=== PATIENT | female | born 1930 | race African-American/Black ===

== ENCOUNTER 2016-06-17 15:17 | Inpatient (IN) | payer OTHER ==
[2016-06-17 16:11] LABS: URINE SOURCE CLEAN CATCH
[2016-06-17] MEDS ORDERED: HYDROXYZINE PO ONE (16:12)
[2016-06-17 16:15] LABS: BILIRUBIN URINE NEGATIVE (NEGATIVE); BLOOD URINE NEGATIVE (NEGATIVE); CLARITY CLEAR (CLEAR); COLOR YELLOW; GLUCOSE URINE NEGATIVE (NEGATIVE); LEUKOCYTES URINE 2+ (NEGATIVE); NITRITE URINE NEGATIVE (NEGATIVE); PH URINE 6.5; PROTEIN URINE 2+(100 mg/dL) mg/dL (NEGATIVE); SP GRAVITY URINE 1.005; UROBILINOGEN URINE NORMAL
--- NOTE | 2016-06-17 16:21 | PROVIDER DOCUMENTATION ---
HPI-Respiratory General - General Chief Complaint: Shortness of Breath Stated Complaint: B/P PROB Time Seen by Provider: 06/17/16 16:03 Source: patient Allergies/Adverse Reactions: Patient Allergies Allergy/AdvReac Type Severity Reaction Status Date / Time Beta-Blockers Allergy SHORTNESS Verified 04/13/16 12:43 (Beta-Adrenergic Bloc OF BREATH Home Medications: Dicyclomine [Bentyl] 20 mg PO 4XDAY PRN PRN 09/03/15 Isosorbide Mononitrate [Isosorbide Mononitrate ER] 30 mg PO DAILY 09/03/15 Losartan Potassium 100 mg PO DAILY 09/03/15 Calcitriol 0.25 mcg PO DAILY 01/11/16 Iron Fum,Ps/FA/Vit B with C #9 [Integra Plus Capsule] 1 each PO DAILY 01/11/16 Furosemide [Lasix] 40 mg PO TID 01/12/16 Polyethylene Glycol 3350 [Miralax] 17 gm PO DAILY 01/12/16 Cholecalciferol (Vitamin D3) [Vitamin D3] 1,000 unit PO DAILY 04/11/16 Lactobacillus Acidophilus [Florajen] 460 mg PO DAILY 04/11/16 Omeprazole 40 mg PO DAILY@0700 04/11/16 - History of Present Illness-Resp Nature of Presenting Problem: Reports to er with cc of sob since last night reports orthopnea states is on home oxygen at night. Reports significant itchying all over body reports possible rash. Hx of CHF. Quality of Pain: reports: none Severity in ED: reports: moderate Onset/Duration: reports: last night Cough Quality/Degree: reports: no cough Episode Frequency: occasional episodes Current Respiratory Medication Therapy: Initiated see nurses note Similar Symptoms Previously?: Yes Recently seen or treated by another doctor?: No Review of Systems - Adult - REVIEW OF SYSTEMS - ADULT Constitutional: denies: chills, fever, fatique Eyes: reports: no symptoms reported Ears, Nose, Mouth & Throat: denies: ear pain, sinus problem, throat pain Cardiovascular: reports: orthopnea. denies: chest pain, irregular heart rate, syncope Respiratory: reports: shortness of breath. denies: cough, pleurisy, wheezing Gastrointestinal: reports: no symptoms reported Genitourinary: reports: no symptoms reported Musculoskeletal: reports: no symptoms reported Integumentary: reports: no symptoms reported Neurological: reports: no symptoms reported Psychiatric: reports: no symptoms reported Endocrine: reports: no symptoms reported Hematologic/Lymphatic: reports: no symptoms reported Allergic/Immunologic: reports: no symptoms reported All Other Systems: Reviewed and Negative Past History - Adult - PAST MEDICAL HISTORY-ADULT Review of Records: reports: Nursing Assessment Review Major Childhood Illnesses: reports: denies history Cardiovascular: reports: HTN Respiratory: reports: asthma, COPD Gastrointestinal: reports: denies history Obstetrical/Gynecological: reports: denies history Genitourinary: reports: cancer (right kidney ), ESRD Musculoskeletal: reports: denies history Neurological: reports: denies history Endocrine/Immune: reports: Diabetes Other Conditions: reports: denies history - PRIOR SURGERIES/PROCEDURES Surgical/Procedure History: reports: other (right nephrectomy) - IMMUNIZATION STATUS Childhood Immunizations: See Nurse Assessment Flu Vaccine: See Nurse Assessment - FAMILY HISTORY Family History: reviewed, not pertinent - SOCIAL HISTORY Smoking: denies Substance Use: none/never Physical Exam-General - PHYSICAL EXAM-ADULT Initial Vital Signs Reviewed: Yes - CONSTITUTIONAL General Appearance: appears well, alert, no apparent distress, other (95% room air sat) - EYES Eyes: PERRL/EOMI, pink conjunctivae - HEAD, EARS, NOSE, MOUTH & THROAT HENMT: normocephalic/atraumatic, moist mucous membranes, normal ENT inspection - NECK Neck: non-tender, full range of motion, supple, normal inspection - RESPIRATORY Respiratory: chest non-tender, wheezing (bilaterally) - CARDIOVASCULAR Cardiovascular: normal peripheral pulses, regular rate, rhythm, no edema, no gallop, no JVD, no murmur - GASTROINTESTINAL (ABDOMEN) Abdominal Exam: normal bowel sounds, non tender, soft, no organomegaly, no pulsatile mass - MUSCULOSKELETAL Extremity: normal range of motion, non-tender, pedal edema (1+ pitting edema) Peripheral Pulses: dorsalis-pedis (R): 2+, dorsalis-pedis (L): 2+ - SKIN Integumentary: normal color, normal turgor, warm/dry, other (dry flaky skin) - PSYCHIATRIC Psych/Mental Status: normal mood/affect, normal thought content, normal thought process, oriented x 3 Progress - PLAN OF CARE/RESULTS Progress/Plan/Lab Results: Orders Category Date Time Status cxr [CHEST-2 VIEWS] [RAD] Stat Exams 12/27/16 16:12 Ordered BNP [PRO B-NATRIURETIC PEPTIDE] Stat Lab 06/17/16 16:12 Ordered CBC WITH ELECTRONIC DIFF [HEME] Stat Lab 06/17/16 16:11 Ordered CMP [COMPREHENSIVE METABOLIC PANEL] [CHEM] Stat Lab 06/17/16 16:11 Ordered UA [URINALYSIS PL W/POSS RFLX CULT] [URINALYSIS] Stat Lab 06/17/16 15:55 Results Hydroxyzine Med 06/17/16 16:12 Discontinued 50 mg PO NOW ONE Vital Signs - 24 hr 06/17/16 15:27 Temperature 98.1 F Pulse Rate 70 Respiratory 18 Rate Blood Pressure 202/78 O2 Sat by Pulse 97 Oximetry Laboratory Tests 06/17/16 06/17/16 06/17/16 15:55 17:00 17:00 WBC 8.78 RBC 3.12 L Hgb 9.4 L Hct 30.3 L MCV 97.1 MCH 30.1 MCHC 31.0 L RDW Std Deviation 16.4 H Plt Count 271 MPV 10.4 Immature Gran % (Auto) 0.7 H Neut % (Auto) 69.0 Lymph % (Auto) 13.7 L Lewis % (Auto) 13.1 H Eos % (Auto) 3.0 Baso % (Auto) 0.5 Immature Gran # (Auto) 0.06 H Neut # 6.07 Lymph # 1.20 Lewis # 1.15 H Eos # 0.26 Baso # 0.04 Sodium 133 L Potassium 4.8 Chloride 101 Carbon Dioxide 17 L Anion Gap 15 BUN 58 H Creatinine 4.5 H Estimated GFR/1.73 m2 9 BUN/Creatinine Ratio 13 Glucose 107 H Calculated Osmolality 283 Calcium 9.6 Total Bilirubin < 0.15 L AST 24 ALT 16 Alkaline Phosphatase 83 Pxs-[id number] Pept Total Protein 6.4 Albumin 3.7 Globulin 3.0 Albumin/Globulin Ratio 1.0 Urine Source CLEAN CATCH Urine Color YELLOW Urine Clarity CLEAR Urine pH 6.5 Ur Specific Sula 1.005 Urine Protein 2+(100 mg/dL) A Urine Ketones NEGATIVE Urine Blood NEGATIVE Urine Nitrite NEGATIVE Urine Bilirubin NEGATIVE Urine Urobilinogen NORMAL Urine Microscopic RBC Not Reportable Urine WBC 2+ A Urine Microscopic WBC 10-20 A Ur Epithelial Cells <10 Urine Crystals NONE SEEN Urine Bacteria 1+ Urine Casts NONE SEEN Urine Yeast NONE SEEN Urine Glucose NEGATIVE 06/17/16 17:00 WBC RBC Hgb Hct MCV MCH MCHC RDW Std Deviation Plt Count MPV Immature Gran % (Auto) Neut % (Auto) Lymph % (Auto) Lewis % (Auto) Eos % (Auto) Baso % (Auto) Immature Gran # (Auto) Neut # Lymph # Lewis # Eos # Baso # Sodium Potassium Chloride Carbon Dioxide Anion Gap BUN Creatinine Estimated GFR/1.73 m2 BUN/Creatinine Ratio Glucose Calculated Osmolality Calcium Total Bilirubin AST ALT Alkaline Phosphatase Adj-P-[id number] Pept 12780 H Total Protein Albumin Globulin Albumin/Globulin Ratio Urine Source Urine Color Urine Clarity Urine pH Ur Specific Sula Urine Protein Urine Ketones Urine Blood Urine Nitrite Urine Bilirubin Urine Urobilinogen Urine Microscopic RBC Urine WBC Urine Microscopic WBC Ur Epithelial Cells Urine Crystals Urine Bacteria Urine Casts Urine Yeast Urine Glucose - XRAY 1 XRAY: Bilateral XRAY Study: Chest Impression: Abnormal (CM with IS edema and more focal edema or pna right lung base' ) - CONSULTS/PCP/HOSPITALIST Notification #1 *Consult/PCP/Hospitalist*: Time Discussed: 17:53 Consult Disposition: Admit Departure - Departure Time of Disposition Order: 17:50 DIAGNOSIS: CHF (congestive heart failure) Disposition: ADMITTED INPATIENT 09 Certified Medical Emergency: Emergent Condition: Stable Attestation - Scribe Verification/Attestation Scribe:: Nona Pena Acting as Scribe for:: Matt Menezes Scribe documention review:: This chart was documented by a scribe and accurately reflects the service the provider performed and the decisions made by the provider.
[2016-06-17] MEDS ORDERED: HYDROXYZINE ONE (16:35)
[2016-06-17 16:37] LABS: URINE CAST NONE SEEN /LPF; URINE CRYSTAL NONE SEEN /HPF; URINE CULTURE PL NEEDED? YES; URINE EPITHELIAL CELLS <10 /HPF (<10)
[2016-06-17 17:11] LABS: BASO% 0.5 % (0.0-0.8); EOS# 0.26 X1000 (0.0-0.7); HEMATOCRIT 30.3 % (37.0-47.0); HEMOGLOBIN 9.4 g/dL (12.0-16.0); IMM GRAN# 0.06 X1000 (0.0-0.04); IMM GRAN% 0.7 % (0.0-0.5); LYMPH% 13.7 % (20.5-51.1); MANUAL DIFF NEEDED? NO; MCH 30.1 PG (27-31); MCV 97.1 FL (81-99); MONO# 1.15 X1000 (0.11-0.59); MONO% 13.1 % (1.7-9.3); MPV 10.4 FL (7.4-10.4); PLT 271 X1000 (130-400); RBC 3.12 XMIL (4.2-5.4)
[2016-06-17 17:36] LABS: AGAP 15; ALBUMIN 3.7 g/dL (3.5-5.0); ALKALINE PHOSPHATASE 83 U/L (32-104); BUN 58 mg/dL (8-22); CALCIUM 9.6 mg/dL (8.8-10.2); CHLORIDE 101 mmol/L (98-107); COSMO 283; GOT 24 U/L (10-30); GPT 16 U/L (10-36); POTASSIUM 4.8 mmol/L (3.5-5.1); SODIUM 133 mmol/L (136-145); TCO2 17 mmol/L (25-35); TOTAL BILIRUBIN < 0.15 mg/dL (0.20-1.00); TOTAL PROTEIN 6.4 g/dL (6.3-8.3)
--- NOTE | 2016-06-17 18:01 | Diag Imaging Result Document ---
PROCEDURE NAME: CHEST-2 VIEWS - 06/17/2016 CHEST, 2 VIEWS: COMPARISON: 04/29/2016. FINDINGS: There is cardiomegaly. There are prominent interstitial markings throughout both lungs. There is increased opacity within the right lower lobe consistent with pneumonia or edema. No pleural effusions. There is very mild subpleural edema on the lateral view. IMPRESSION: Cardiomegaly with interstitial edema and more focal edema or pneumonia right lung base.
[2016-06-17] MEDS ORDERED: CATAPRES PO ONE (18:07)
[2016-06-17] MEDS ORDERED: LASIX IV ONE (18:08)
[2016-06-17] MEDS ORDERED: CATAPRES ONE (18:52)
[2016-06-17] MEDS ORDERED: BENTYL PO PRN (20:22)
[2016-06-18] MEDS: PRILOSEC PO SCH (06:30)
[2016-06-18] MEDS ORDERED: PROTONIX PO SCH (07:00)
[2016-06-18] MEDS: CULTURELLE PO SCH (08:21)
[2016-06-18] MEDS: IMDUR PO SCH (08:21)
[2016-06-18] MEDS: MIRALAX PO SCH (08:21)
[2016-06-18] MEDS: CARDIZEM CD PO SCH (08:21)
[2016-06-18] MEDS: COZAAR PO SCH (08:22)
[2016-06-18] MEDS: ICAR-C PLUS PO SCH (08:22)
[2016-06-18] MEDS: ROCALTROL PO SCH (08:23)
[2016-06-18] MEDS: VITAMIN D PO SCH (08:23)
[2016-06-18] MEDS ORDERED: ZEBETA PO SCH (09:00)
[2016-06-18] MEDS ORDERED: APRESOLINE PO SCH (09:00)
[2016-06-18] MEDS ORDERED: ZOFRAN IV PRN (12:13)
--- NOTE | 2016-06-18 12:38 | HISTORY AND PHYSICAL ---
CHIEF COMPLAINT: Shortness of breath. HISTORY OF PRESENT ILLNESS: Briefly, this is an 85-year-old female with a history of shortness of breath, CHF, and most importantly chronic renal failure stage 3. Her last admission was in March. She comes in with progressive shortness of breath for several days. Denies any weight changes. Denies any dietary changes, although Blum was just around the corner so I am suspicious she may have had some dietary transgressions, but she has had progressive shortness of breath over the last 2-3 days. She had an episode of PND. She is exhibiting orthopnea. Clinically was volume overloaded in the emergency room. It was felt to be congestive heart failure exacerbation, so she was admitted as such. ER did not disclose that she has a creatinine of 4.5 with a GFR of 9, they were more focused on a BNP of 14,957 which although elevated, apparently meaningless in the setting of chronic renal failure stage 5. She does have a nonproductive cough. Denies chest pain. She has occasional wheezing. She was admitted for CHF which is certainly a possibility but could also be progressive renal failure and volume overload associated with that. PAST MEDICAL HISTORY: 1. Diabetes. 2. Reported asthma. 3. Very difficult to control essential hypertension. 4. Chronic renal failure stage 5. Has not been on dialysis but does have a left AV fistula. 5. Chronic constipation. PAST SURGICAL HISTORY: 1. She has had sinus surgery. 2. Left shoulder surgery. 3. Left AV arm fistula. 4. Right nephrectomy associated with right renal cell carcinoma. She has also had partial nephrectomy of her left kidney but that was benign. A cystic lesion was noted at that time. 5. Hysterectomy. FAMILY HISTORY: Positive for anemia in 2 sisters. Father suddenly of CAD at 84. Mother is still alive at 101. SOCIAL HISTORY: No tobacco or ethanol. ALLERGIES: Beta blockers, unknown reaction. MEDICATIONS: Bentyl 20 four times a day, Imdur 30 daily, losartan 100 daily, calcitriol 0.25 mcg daily, Lasix 40 t.i.d., Integra 1 daily, MiraLAX 17 daily, vitamin D3 1000 units daily, lactobacillus 460 daily, omeprazole 40 daily, Protonix 40 daily, Zebeta 10 daily despite her allergy to beta blockers, [place] p.r.n., hydralazine 50 t.i.d., Kimberly CABALLERO. REVIEW OF SYSTEMS: Positive for constipation alone. PHYSICAL EXAMINATION: VITAL SIGNS: This is a very pleasant, well-developed female, in no acute distress. VITAL SIGNS: Blood pressure 153/54, heart rate 57, respiratory rate 16, temperature 97.9 degrees, 100% on 2 L. HEAD: Normocephalic, atraumatic. EYES: Pupils equal, round, reactive to light. Extraocular movements were intact. EAR/NOSE/THROAT: She had moist mucous membranes. NECK: Supple. CARDIOVASCULAR EXAM: Regular rate and rhythm. No murmurs, gallops, or rubs. PULMONARY: Bilateral breath sounds with rales at the bases. GI: Soft, nontender, nondistended. Bowel sounds are positive. EXTREMITIES: No clubbing or cyanosis. LYMPHATICS: No peripheral edema. NEUROLOGICAL: Nonfocal. IMPRESSIONS: This is an 85-year-old female with a history of progressive renal failure and reported diastolic heart failure, presenting with volume overload, likely a combination of diastolic heart failure and renal failure. 1. Volume overload. I am going to initiate a Lasix drip. I will get a cardiology consultation. I do not think we need to repeat her echo. Her last one was done in December which was about 5 months ago and had a normal EF at that time. I will get cardiology opinion to evaluate if they feel this is more related to a primary cardiac issue, although I think it is a combination of issues. 2. Malignant hypertension. We will continue her medications. She is on Cardizem, hydralazine, losartan. She is not maxed out yet on her medications. I am going to bump up her hydralazine to 75 t.i.d. 3. Chronic renal failure. She is at baseline but there is no urgent need for dialysis. 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 Barrios, just to alert him that there are issues here. 4. Diabetes. She is diet controlled at this point. Sugars appear to be fairly well controlled. Continue to monitor them here. Check an A1c and follow. 5. Disposition. Pending her issues. Probably home in a day or 2.
[2016-06-18] MEDS: LASIX 100 MG in NS 90 ML IV SCH (13:36)
[2016-06-18] MEDS: APRESOLINE PO SCH ×2 (13:36→17:06)
[2016-06-18] MEDS ORDERED: NS 500 ML ONE (13:39)
--- NOTE | 2016-06-18 17:02 | EKG Report ---
Test Performed on : 06/18/2016 12:23:40 PM Test Reason : chf exacerbation Blood Pressure : / mmHG Vent. Rate : 056 BPM Atrial Rate : 056 BPM P-R Int : 162 ms QRS Dur : 078 ms QT Int : 484 ms P-R-T Axes : 040 -12 051 degrees QTc Int : 467 ms Sinus bradycardia. Minimal voltage criteria for LVH, may be normal variant Borderline ECG When compared with ECG of 11-APR-2016 08:27, No significant change was found Unconfirmed Result
--- NOTE | 2016-06-18 20:19 | CONSULTATION ---
DATE OF CONSULTATION: 06/18/2016 INDICATION: Shortness of breath, hypertension. HISTORY OF PRESENT ILLNESS: Ms. Ariza is an 85-year-old black female with a history of shortness of breath and near end-stage renal disease. She had recent hospitalizations and over the last several days has been increasingly short of breath. She thinks this has been related to excessive fluid. She notably has a left upper extremity arteriovenous fistula in place, but has not initiated dialysis at this time. She has not reported missing any medications nor is she aware of any recent medication changes. She is not very clear on any episodes of sodium indiscretion. PAST MEDICAL HISTORY: 1. Significant for diabetes. 2. Questionable asthma. 3. Hypertension that is very difficult to control. 4. End-stage renal disease, not yet on dialysis. SOCIAL HISTORY: No tobacco or alcohol use. FAMILY HISTORY: Significant for anemia. Father had a history of coronary disease. Mother is alive at 101 years of age. REVIEW OF SYSTEMS: A 10 system review of systems is negative except for those things mentioned in HPI. PHYSICAL EXAMINATION: Vital signs: She is afebrile. Her heart rates are in the 50s most recently. Blood pressure 116/41, but prior to that her blood pressures were in the 150s to 200s. She seems to have had a steady decline in her blood pressures from 200 systolic to the 170s, 160s, 150s and now the most recent was 110. Her input and output seem to be somewhat incomplete. She is slightly positive by the readings. Generally: She is in no acute distress. HEENT: Oropharynx is moist. She has normal dentition. Her eye examination is pink conjunctivae. White sclerae. Neck: Examination shows no obvious thyromegaly or thyroid tenderness. Cardiovascular: She sounds to be in a regular rate and rhythm. She has no obvious murmurs. No S3. She has minimal lower extremity edema and warm well perfused lower extremities. Chest: Sounds clear. She has poor inspiratory effort. No increased work of breathing. Abdomen: Soft, nontender, nondistended. No obvious organomegaly. Skin: Warm and dry throughout. Neurological: Moving all extremities well. Cranial nerves 2-12 are intact without any sensation deficits. Psychiatric: Alert and oriented, pleasant. Normal mood and affect. PERTINENT DATA: White count yesterday was 8.7, hematocrit 30, platelet count 271,000. Sodium 133, potassium 4.8, BUN 58, creatinine 4.5. Her proBNP yesterday was 14,957. Her chest x-ray showed cardiomegaly with mild interstitial edema. Possible focal edema or pneumonia in the right lung base. Her echo done in December shows an EF of 60 65%. Mild left ventricular hypertrophy. Mild left atrial enlargement. Trace aortic insufficiency. Mild mitral regurgitation. RV systolic pressure was 64. ASSESSMENT: 1. Hypertension. 2. Likely volume overload, possibly multifactorial. 3. End-stage renal disease. PLAN: Patient likely has a component of diastolic heart failure, but also likely has blood pressure volume issues secondary to her renal insufficiency. I agree with mild diuresis. Her vital signs more recently have been very erratic. We will trend a few more and see if we can adjust her medications. I would consider increasing her nitrate versus possibly increasing her hydralazine again. We will continue to follow up on this.
[2016-06-18] MEDS: HEPARIN SUBQ SCH (21:05)
[2016-06-19] MEDS: PRILOSEC PO SCH (06:19)
[2016-06-19 06:46] LABS: HEMATOCRIT 28.8 % (37.0-47.0); HEMOGLOBIN 8.6 g/dL (12.0-16.0); MCH 28.5 PG (27-31); MCHC 29.9 g/dL (33-37); MCV 95.4 FL (81-99); MPV 10.4 FL (7.4-10.4); RBC 3.02 XMIL (4.2-5.4)
[2016-06-19 07:12] LABS: ALBUMIN 3.7 g/dL (3.5-5.0); POTASSIUM 4.8 mmol/L (3.5-5.1)
[2016-06-19] MEDS: IMDUR PO SCH (11:03)
[2016-06-19] MEDS: CULTURELLE PO SCH (11:03)
[2016-06-19] MEDS: COZAAR PO SCH (11:03)
[2016-06-19] MEDS: CARDIZEM CD PO SCH (11:03)
[2016-06-19] MEDS: APRESOLINE PO SCH ×3 (11:04→18:10)
[2016-06-19] MEDS: MIRALAX PO SCH (11:04)
[2016-06-19] MEDS: VITAMIN D PO SCH (11:04)
[2016-06-19] MEDS: ROCALTROL PO SCH (11:06)
[2016-06-19] MEDS: HEPARIN SUBQ SCH ×2 (11:06→20:56)
[2016-06-19] MEDS: ICAR-C PLUS PO SCH ×2 (11:21→13:11)
[2016-06-19] MEDS: LASIX 100 MG in NS 90 ML IV SCH (13:11)
[2016-06-19] MEDS: TYLENOL PO PRN (13:20)
--- NOTE | 2016-06-19 16:30 | PROGRESS NOTE ---
DATE: 06/19/2016 SUBJECTIVE: The patient has no complaints. OBJECTIVE: Vital Signs: Blood pressure 130/49, heart rate 55, respiratory rate 18, temperature 98.7 degrees. Cardiovascular: Regular rate and rhythm. Pulmonary: Bilateral breath sounds. Clear to auscultation. GI: Soft, nontender, nondistended. Bowel sounds are positive. Extremities: No clubbing or cyanosis. Lymphatics: No peripheral edema. Neurological exam: Nonfocal. LABORATORY DATA: Hemoglobin and hematocrit 8.6 and 28, platelets of 336. Chemistries: BUN and creatinine are 70 and 5.4. ASSESSMENT AND PLAN: 1. Volume overload secondary to diastolic heart failure and likely worsening renal function. We will continue Lasix drip and follow her BUN and creatinine unfortunately that is rising, and her urine output is not really picking up unfortunately, but we will continue to monitor. 2. Malignant hypertension. This is improved on current regimen. 3. Anemia, likely chronic iron deficiency. May need iron infusion. We will continue to monitor. Renal service has been consulted because of worsening renal function, and I have ordered all the labs. May get iron infusion while she is here. DISPOSITION: Pending renal function and overall clinical improvement. Appreciate renal and cardiology services.
--- NOTE | 2016-06-19 16:49 | CONSULTATION ---
DATE OF CONSULTATION: 06/19/2016 REASON FOR ADMISSION: Shortness of breath. REASON FOR CONSULTATION: Chronic kidney disease stage 5, with acute kidney injury. CONSULTING PHYSICIAN: Arthur Sow MD HISTORY OF PRESENT ILLNESS: This is an 85-year-old female, well known to our service for chronic kidney disease stage 5 who has had a stable creatinine in the mid 4's now for some time. She has an AV fistula that has not become uremic to start dialysis and has wished to wait until as long as possible before initiating of that therapy. She has been in relatively good health, and she was last seen in our office about 4 weeks ago. The patient presented to the emergency room after having shortness of breath for several days and in the emergency room was found to be some volume overload with CHF. She had no uremic symptoms, such as nausea, vomiting, weakness. Urine output has been adequate. She was admitted, begun on IV Lasix. Initial creatinine was 4.5, today was 5.4. We have been asked to see her because of her current history. PAST MEDICAL HISTORY: 1. Chronic kidney disease stage 5, with a baseline creatinine in the mid 4's with an AV fistula to the left upper extremity. Dialysis has not yet been initiated on this patient. 2. Diabetes, asthma, hypertension, constipation, hyperparathyroidism, anemia, history of GERD. PAST SURGICAL HISTORY: Sinus surgery. Shoulder surgery. She has had a left AV upper extremity fistula. She has a left upper extremity to the distal portion graft that is non functional. She has had a right nephrectomy secondary to renal cell carcinoma and a partial nephrectomy to the left kidney. She has had a hysterectomy in the past. ALLERGIES: Beta-blockers. HOME MEDICATIONS: Bentyl, Imdur, losartan, calcitriol, Lasix, Integra, MiraLAX, vitamin D3, lactobacillus, omeprazole, Protonix, Zebeta, [place], hydralazine and Cardizem. FAMILY HISTORY: Anemia and coronary artery disease. SOCIAL HISTORY: No ETOH, tobacco or illicit drug use. She is still an active lady. REVIEW OF SYSTEMS: Positive for constipation and chest pain, shortness of breath with edema. PHYSICAL EXAMINATION: Vital Signs: Temperature 98 degrees, pulse 63, respiratory rate 18, blood pressure 151/43, intake 1.4 L, output 300 mL. General: This is an elderly female sitting up in bed. She is awake, alert, oriented in her usual mental status. She is able to assist with exam appropriately. HEENT: Normocephalic, atraumatic. Her oral mucosa is moist. JOLIE. Neck: Supple. She does have positive JVD in an upright position. Cardiovascular: Regular rate and rhythm without murmur or gallop. Pulmonary: She has equal excursion. She has occasional wheeze bilaterally, but no overt rales today. She is on O2 supplementation via nasal cannula. Abdomen: Soft, positive bowel sounds. It is somewhat distended. : Not inspected. Voids without difficulty. Extremities: She has trace pretibial edema. There is no clubbing or cyanosis. She is able to move all extremities. She does have some pitting 1+ pretibial edema as well to the thighs. Palpable thrill noted to AV fistula left upper extremity, upper arm Integumentary: Skin is warm and dry. There is no rash or lesion. thank you. Neurology: Nonfocal. Awake alert, oriented x4. LABORATORY DATA: WBC of 9.3, hemoglobin 8.6, hematocrit 28.8, platelet count of 336,000. Sodium 134, potassium 4.8, CO2 19, BUN 70, creatinine 5.4, it was 4.5 yesterday, phosphorus 6.5, calcium 9, albumin 3.7. ASSESSMENT AND PLAN: 1. Acute on chronic kidney disease. The patient does not have an absolute indication for dialysis at this time. Certainly her fluid volume status is concerning. She had she does not appear uremic otherwise. I did discuss with the patient the possibility that if we are unable to manage her fluid volumes medically, that dialysis may be warranted, but there was no indication for that today. We will make further daily decisions. We will check labs in the morning. 2. Chronic anemia, iron deficiency anemia. She had been set up as an outpatient to have IV iron. That has not happened yet. We will check her iron stores while she is in the hospital and dose as appropriate. 3. Malignant hypertension. Blood pressure is coming under control with some changes to her hydralazine. We will continue to monitor. 4. Fluid volume overload. She is on a Lasix drip and I am not surprised with the bump in her creatinine. Once we are able to get her fluids under control and get her back to a p.o. dose, I anticipate this will improve close to her baseline as this patient has been quite stable historically. 5. Electrolytes, acid-base balance. These are acceptable. We will make no changes. Dictated by ULISES Jones for Pramod Barrios MD
--- NOTE | 2016-06-19 18:28 | PROGRESS NOTE ---
DATE: 06/19/2016 SUBJECTIVE: Overall patient feels better today. She states her breathing has improved. OBJECTIVE: Heart rate is in the 50s, blood pressure is 130s to 150s over 40s. This is been trending down. I's and O's per report patient is positive over 2 L within the last 48 hours.General: On exam, this is a well-developed female who appears comfortable. HEENT: Benign. Neck: Supple. Chest: Bilateral breath sounds, which are clear. Cardiovascular: Reveals a regular rate and rhythm. There is a very faint holosystolic murmur noted. Abdomen: Positive bowel sounds. Nontender, nondistended. Extremities: There is no edema. IMPRESSION: Problem #1: Volume overload. Clinically patient does appear to be much improved. Her I's and O's do appear to be positive although I suspect that this may not necessarily be accurate. We are continuing attempts at diuresis with IV Lasix. The patient's medical regimen has been adjusted to address diastolic heart issues. Further volume issues may need to be addressed through Renal Medicine and hemodialysis if they become recurring or severe.
[2016-06-19] MEDS ORDERED: LASIX 100 MG in NS 90 ML IV SCH (21:08)
--- NOTE | 2016-06-19 21:24 | EKG Report ---
Test Performed on : 06/19/2016 9:19:06 PM Test Reason : CP Blood Pressure : / mmHG Vent. Rate : 062 BPM Atrial Rate : 034 BPM P-R Int : 000 ms QRS Dur : 088 ms QT Int : 464 ms P-R-T Axes : 000 -04 051 degrees QTc Int : 470 ms Marked sinus bradycardia. with pacs Minimal voltage criteria for LVH, may be normal variant Abnormal ECG When compared with ECG of 18-JUN-2016 12:23, (Unconfirmed) Atrial fibrillation. has replaced Sinus rhythm. Confirmed by Jovany Almazan MD ([id number]) on 06/23/2016 11:57:42 PM
[2016-06-19] MEDS: KLONOPIN PO PRN (22:40)
[2016-06-19] MEDS: LASIX IM SCH (23:12)
[2016-06-20 06:01] LABS: HEMATOCRIT 26.4 % (37.0-47.0); MCH 28.5 PG (27-31); MCHC 30.3 g/dL (33-37); MPV 10.4 FL (7.4-10.4); RBC 2.81 XMIL (4.2-5.4)
[2016-06-20] MEDS: PRILOSEC PO SCH (06:06)
[2016-06-20 06:19] LABS: ALBUMIN 3.3 g/dL (3.5-5.0); CALCIUM 9.1 mg/dL (8.8-10.2); POTASSIUM 4.7 mmol/L (3.5-5.1)
[2016-06-20] MEDS: VITAMIN D PO SCH (08:51)
[2016-06-20] MEDS: IMDUR PO SCH (08:51)
[2016-06-20] MEDS: CARDIZEM CD PO SCH (08:51)
[2016-06-20] MEDS: HEPARIN SUBQ SCH ×2 (08:51→21:21)
[2016-06-20] MEDS: CULTURELLE PO SCH (08:51)
[2016-06-20] MEDS: MIRALAX PO SCH (08:51)
[2016-06-20] MEDS: ROCALTROL PO SCH (08:51)
[2016-06-20] MEDS: COZAAR PO SCH (08:52)
[2016-06-20] MEDS: APRESOLINE PO SCH ×3 (08:52→16:33)
[2016-06-20 09:23] LABS: FERRITIN 1335 ng/mL (13-150)
[2016-06-20] MEDS: ICAR-C PLUS PO SCH (11:36)
[2016-06-20] MEDS: LASIX IM SCH (11:37)
--- NOTE | 2016-06-20 15:09 | PROGRESS NOTE ---
DATE: 06/20/2016 SUBJECTIVE: She states she is improved since admission but she still short of breath. Still requiring supplemental oxygen. OBJECTIVE: Vital Signs: Blood pressure 157/53 heart rate 97, respiration 18, afebrile. Intake 1 L. Output not recorded. General Appearance: No acute distress. Skin: Warm and dry. Conjunctivae are pink. Oropharynx is moist. Neck: Neck veins are distended. Heart: Regular with a gallop. No rubs. Lungs: Have equal breath sounds. Few crackles. No wheezes. Abdomen: Obese and soft. Bowel sounds are present. Extremities: Have 2+ edema. No clubbing or cyanosis. Palpable thrill in her left upper arm AV fistula. LABORATORY DATA: Sodium 132 potassium 4.7, chloride 98, bicarbonate 20, BUN 74, creatinine 5.6, hemoglobin 8.0. IMPRESSION: 1. Stage 5 chronic kidney disease with volume overload. She has not responded well during this hospitalization. This is her 3rd hospitalization within the last 2-3 months. I will maximize oral diuretics because she cannot keep an IV. If she does not have improvement in her status over the weekend using this treatment then we will need to initiate dialysis. She and I discussed this today. 2. Electrolytes are acceptable. 3. Acid base acceptable. 4. Anemia: She takes outpatient erythropoietin in my office. Her iron saturation is low, but her ferritin is over 1200, so no more IV iron will be given. Re-dose with erythropoietin.
[2016-06-20] MEDS: ZAROXOLYN PO SCH (15:29)
[2016-06-20] MEDS: DEMADEX PO SCH (18:46)
[2016-06-20] MEDS: LACTULOSE PO SCH (21:20)
--- NOTE | 2016-06-21 00:15 | PROGRESS NOTE ---
DATE: 06/20/2016 SUBJECTIVE: Patient has no complaints except persistent dyspnea. She also had some chest pain last night but that seems resolved. OBJECTIVE: Blood pressure 157/42, heart rate of 48, respiratory 18, temperature 98 degrees.General: A well-developed female, no acute distress. HEENT: Head exam normocephalic, atraumatic. Pupils equal, round, reactive. Cardiovascular: Regular rate and rhythm. Pulmonary: Bilateral breath sounds. Clear to auscultation. GI: Soft, nontender, nondistended. Bowel sounds are positive. LABORATORY DATA: Hemoglobin and hematocrit 8 and 26, platelets 323,000. BUN and creatinine 74 and 5.6, not a big change from yesterday. Iron level was low but normal TIBC and ferritin was actually high. PROBLEM LIST: 1. A acute kidney injury. Volume overload. Will continue to treat. Apparently she has lost intravenous access so Dr. Barrios has put her on high-dose Demadex and Zaroxolyn attempt to institute some profound hopefully diuresis. If not we will have to progress towards renal replacement therapy. We are going to give her the next 48-72 hours to evaluate that. 2. Anemia. We will continue to monitor. She is on iron supplementation. I think plan is to give her erythropoietin, that has not been ordered, I do not know if she is going to get that with dialysis but in any case. DISPOSITION: Pending her improvement in clinical status or further deterioration in her renal status and then subsequent need for hemodialysis.
[2016-06-21] MEDS: PRILOSEC PO SCH ×2 (05:40→07:35)
[2016-06-21] MEDS: DEMADEX PO SCH ×2 (05:40→18:23)
[2016-06-21 06:11] LABS: HEMATOCRIT 25.8 % (37.0-47.0); HEMOGLOBIN 7.8 g/dL (12.0-16.0); MCH 28.4 PG (27-31); MCHC 30.2 g/dL (33-37); MCV 93.8 FL (81-99); MPV 10.9 FL (7.4-10.4); RBC 2.75 XMIL (4.2-5.4)
[2016-06-21 07:17] LABS: ALBUMIN 3.4 g/dL (3.5-5.0); CALCIUM 9.1 mg/dL (8.8-10.2); POTASSIUM 4.5 mmol/L (3.5-5.1)
--- NOTE | 2016-06-21 10:51 | PROGRESS NOTE ---
DATE: 06/21/2016 SUBJECTIVE: The patient continues to complain of dyspnea. She states that she feels like she is almost back to her normal health. She denied any chest pain, palpitations. OBJECTIVE: Vital Signs: Blood pressure is 136/50 with a heart rate of 53, respirations are 18, temperature is 98 degrees oral with oxygen saturation of 100% on 2 L nasal cannula. Cardiovascular: Regular rate and rhythm. S1 and S2 appreciated. Pulmonary: Breath sounds are clear. No increased work of breathing noted. Gastrointestinal: Abdomen is soft , nontender, nondistended with bowel sounds in all 4 quadrants. The patient continues to be noncompliant asking for an increase in her diet asking for crackers, salty foods, as well as Mountain Dew. Dictated by ULISES Lunsford for Arthur Sow MD A/P: 1) ROHINI in the setting of CRF5 - cont tx and follow; renal fucntion continues to worsen, pt has now JVD on exam, will give extra lasix and follow 2) anemia - stable hh, continue to follow 3)HTN - cont rx and follow 4) dispo - plan to transfer tomorrow for possible [employer] [facility]
[2016-06-21] MEDS: ICAR-C PLUS PO SCH (10:53)
[2016-06-21] MEDS: APRESOLINE PO SCH ×3 (10:53→20:18)
[2016-06-21] MEDS: CARDIZEM CD PO SCH (10:57)
[2016-06-21] MEDS: VITAMIN D PO SCH (10:57)
[2016-06-21] MEDS: IMDUR PO SCH (10:57)
[2016-06-21] MEDS: CULTURELLE PO SCH (10:57)
[2016-06-21] MEDS: ZAROXOLYN PO SCH (10:57)
[2016-06-21] MEDS: COZAAR PO SCH (10:58)
[2016-06-21] MEDS: HEPARIN SUBQ SCH ×2 (10:58→20:20)
[2016-06-21] MEDS: LACTULOSE PO SCH ×2 (10:58→20:18)
[2016-06-21] MEDS: ROCALTROL PO SCH (10:58)
[2016-06-21] MEDS: MIRALAX PO SCH (10:59)
[2016-06-21] MEDS: TYLENOL PO PRN (10:59)
--- NOTE | 2016-06-21 15:02 | Diag Imaging Result Document ---
PROCEDURE NAME: CHEST-2 VIEWS - 06/21/2016 TWO VIEWS OF THE CHEST: FINDINGS: There is blunting of the costophrenic angles, particularly the right posterior. This is worse than on 06/17/2016. Otherwise, the appearance of the chest has not changed appreciably. IMPRESSION: Worsening right pleural effusion.
[2016-06-21 16:34] LABS: HEMOGLOBIN A1C 4.2 % (4.8-6.0)
[2016-06-22] MEDS: DEMADEX PO SCH ×2 (05:28→18:50)
[2016-06-22] MEDS: PRILOSEC PO SCH ×2 (05:29→08:49)
[2016-06-22 07:52] LABS: HEMATOCRIT 26.2 % (37.0-47.0); HEMOGLOBIN 7.9 g/dL (12.0-16.0); MCH 28.2 PG (27-31); MCHC 30.2 g/dL (33-37); MCV 93.6 FL (81-99); MPV 10.4 FL (7.4-10.4); RBC 2.8 XMIL (4.2-5.4)
[2016-06-22 08:21] LABS: ALBUMIN 3.4 g/dL (3.5-5.0); CALCIUM 9.1 mg/dL (8.8-10.2); POTASSIUM 4.2 mmol/L (3.5-5.1)
[2016-06-22] MEDS: MIRALAX PO SCH (08:46)
[2016-06-22] MEDS: APRESOLINE PO SCH ×3 (08:47→18:50)
[2016-06-22] MEDS: LACTULOSE PO SCH ×2 (08:47→21:20)
[2016-06-22] MEDS: IMDUR PO SCH (08:48)
[2016-06-22] MEDS: ROCALTROL PO SCH (08:49)
[2016-06-22] MEDS: COZAAR PO SCH (08:49)
[2016-06-22] MEDS: CARDIZEM CD PO SCH (08:49)
[2016-06-22] MEDS: CULTURELLE PO SCH (08:49)
[2016-06-22] MEDS: HEPARIN SUBQ SCH ×2 (08:50→21:20)
[2016-06-22] MEDS: VITAMIN D PO SCH (10:48)
[2016-06-22] MEDS: ZAROXOLYN PO SCH (10:48)
[2016-06-22] MEDS: ICAR-C PLUS PO SCH (10:49)
[2016-06-22] MEDS: TYLENOL PO PRN ×2 (10:53→23:15)
--- NOTE | 2016-06-22 14:21 | PROGRESS NOTE ---
DATE: 06/22/2016 SUBJECTIVE: This patient states that she is feeling better today. She has no complaints. OBJECTIVE: Vital Signs: Blood pressure is 139/40 with a heart rate of 51, respirations are 18, temperature is 98.4 degrees oral. Oxygen saturations are 98-100% on 3 L nasal cannula. Cardiovascular: Regular rate and rhythm. S1 and S2 appreciated. Pulmonary: Breath sounds are clear. No increased work of breathing noted. Gastrointestinal: Abdomen is soft, nontender, nondistended. Bowel sounds in all 4 quadrants. LABORATORY: WBC is 7.8 with hemoglobin 7.9, hematocrit 26.2 and platelets of 302,000. Sodium is 130, potassium 4.2, BUN is 81, creatinine 6.8 with a CO2 of 20, glucose is 108. ASSESSMENT AND PLAN: 1. Acute kidney injury in the setting of chronic renal failure stage 5. Will continue with her treatment. Her renal function does continue to worsen. She continues with some slight jugular venous distention on exam. 2. Anemia. This is stable. Will continue to follow. 3. Hypertension. Will continue her current regimen. 4. Disposition. Most likely transfer to [facility] today for possible renal replacement treatment. Dictated by ULISES Lunsford for Arthur Sow MD
[2016-06-22] MEDS: KLONOPIN PO PRN (23:15)
[2016-06-23] MEDS: DEMADEX PO SCH (06:14)
[2016-06-23] MEDS: PRILOSEC PO SCH (06:14)
[2016-06-23 06:41] LABS: HEMOGLOBIN 7.6 g/dL (12.0-16.0); MCH 28.3 PG (27-31); MCHC 30.4 g/dL (33-37); MCV 92.9 FL (81-99); MPV 10.6 FL (7.4-10.4); RBC 2.69 XMIL (4.2-5.4)
[2016-06-23 07:18] LABS: ALBUMIN 3.4 g/dL (3.5-5.0); CALCIUM 9.3 mg/dL (8.8-10.2); POTASSIUM 4.5 mmol/L (3.5-5.1)
[2016-06-23] MEDS: VITAMIN D PO SCH (09:35)
[2016-06-23] MEDS: HEPARIN SUBQ SCH ×2 (09:35→20:45)
[2016-06-23] MEDS: MIRALAX PO SCH (09:35)
[2016-06-23] MEDS: LACTULOSE PO SCH ×2 (09:35→20:44)
[2016-06-23] MEDS: ROCALTROL PO SCH (09:36)
[2016-06-23] MEDS: ZAROXOLYN PO SCH (09:36)
[2016-06-23] MEDS: CULTURELLE PO SCH (09:36)
[2016-06-23] MEDS: IMDUR PO SCH (09:36)
[2016-06-23] MEDS: CARDIZEM CD PO SCH (09:36)
[2016-06-23] MEDS: APRESOLINE PO SCH ×3 (09:36→20:44)
[2016-06-23] MEDS: COZAAR PO SCH (09:36)
[2016-06-23] MEDS: ICAR-C PLUS PO SCH (10:42)
--- NOTE | 2016-06-23 14:23 | PROGRESS NOTE ---
DATE: 06/23/2016 SUBJECTIVE: The patient has no focal complaints. OBJECTIVE: Vital Signs: Blood pressure 145/48, heart rate 67, respiratory rate 18, temperature 98.2. 100% saturation on 3 L. Cardiovascular: Regular rate and rhythm. Pulmonary: Bilateral breath sounds. Clear to auscultation. Gastrointestinal: Abdomen soft, nontender, nondistended. Bowel sounds are positive. LABORATORY DATA: Hemoglobin and hematocrit was 7 and 25, white count 7, platelets 299,000. BUN and creatinine have raised to 86 and 7.2. PROBLEM LIST: 1. Progressive renal failure stage 5 now with diminished urine output and slow progression towards need for dialysis. Her urine output has been negligible. She does have JVD on exam although it is not in extremis. She has been on torsemide now for 4 days and Zaroxolyn without much improvement. Our plan is to transfer for hemodialysis per Dr. Barrios. We are in the process of doing that. 2. Hypertension. Blood pressure appears to be improved on current regimen. 3. Anemia. She continues to drop as far as her blood count although it has been fairly stable the last 3 days. We will continue to monitor. Further care per hospitalist and Nephrology systems at [facility].
[2016-06-23] MEDS ORDERED: EPOGEN SUBQ ONE (15:53)
--- NOTE | 2016-06-23 16:18 | PROGRESS NOTE ---
DATE: 06/23/2016 SUBJECTIVE: She was transferred over from [place]. Her blood pressure has been better, and her swelling has been better. However, her kidney function has been worsening. Shortness of breath is minimal. OBJECTIVE: Vital Signs: Blood pressure 160/45, heart rate 73, respirations 20, afebrile. Intake and output are incomplete. General: On physical exam, an elderly woman lying at 30 degrees in no distress. Skin: Warm and dry. HEENT: Conjunctivae are pink. Oropharynx is moist. Neck: The neck veins are distended. Heart: Regular with no rubs. Lungs: Have equal breath sounds, few crackles. Abdomen: Soft, nontender. Bowel sounds are present. Extremities: Have 1+ edema. No clubbing or cyanosis. LABORATORY DATA: Sodium 130, potassium 4.5, chloride 96, bicarbonate 20, BUN 86, creatinine 7.2, phosphorus 6.8, albumin 3.4. Hemoglobin 7.6. IMPRESSION AND PLAN: Chronic kidney disease stage 5. She has not been able to effectively diurese without significant worsening of her renal function. She is well aware of the severity of her kidney disease and understands that she has failed medical therapy. I discussed with them the general plan for tomorrow to initiate dialysis with a-2 hour treatment, and we will dialyze for 3 days consecutively. If she does well during that time, she can be discharged home thereafter. She understands and is agreeable with the plan.
[2016-06-23] MEDS: TYLENOL PO PRN (22:21)
[2016-06-23] MEDS: KLONOPIN PO PRN (22:24)
[2016-06-24] MEDS: PRILOSEC PO SCH (06:01)
[2016-06-24 06:59] LABS: HEMATOCRIT 26.6 % (37.0-47.0); HEMOGLOBIN 8.6 g/dL (12.0-16.0); MCH 29.8 PG (27-31); MCHC 32.3 g/dL (33-37); MPV 10.3 FL (7.4-10.4); RBC 2.89 XMIL (4.2-5.4)
[2016-06-24 07:42] LABS: ALBUMIN 3.4 g/dL (3.5-5.0); CALCIUM 9.8 mg/dL (8.8-10.2); POTASSIUM 4.4 mmol/L (3.5-5.1)
[2016-06-24] MEDS ORDERED: HEPARIN IV PRN (07:55)
[2016-06-24] MEDS ORDERED: NS 2,000 ML MISC PRN (07:55)
[2016-06-24] MEDS ORDERED: TIGHT: 0.2 ML/HR MISC PRN (07:55)
[2016-06-24] MEDS: HEPARIN SUBQ SCH ×2 (08:15→20:39)
[2016-06-24] MEDS: APRESOLINE PO SCH ×3 (12:49→18:07)
[2016-06-24] MEDS: LACTULOSE PO SCH ×2 (12:49→20:39)
[2016-06-24] MEDS: VITAMIN D PO SCH (12:57)
[2016-06-24] MEDS: IMDUR PO SCH (12:57)
[2016-06-24] MEDS: ICAR-C PLUS PO SCH (12:57)
[2016-06-24] MEDS: ROCALTROL PO SCH (12:57)
[2016-06-24] MEDS: COZAAR PO SCH (12:58)
[2016-06-24] MEDS: CARDIZEM CD PO SCH (12:58)
[2016-06-24] MEDS: CULTURELLE PO SCH (12:58)
[2016-06-24] MEDS: MIRALAX PO SCH (12:58)
[2016-06-24] MEDS ORDERED: BENADRYL PO ONE (15:09)
[2016-06-24] MEDS ORDERED: BENADRYL LIQUID PO ONE (15:15)
--- NOTE | 2016-06-24 16:29 | PROGRESS NOTE ---
DATE: 06/24/2016 TIME SEEN: 0800. SUBJECTIVE: The patient is sitting up on the side of the bed. She is waiting to go to dialysis. She has no complaints this morning. She states that her edema appears to be somewhat better in her legs. OBJECTIVE: Vital Signs: Temperature 97.6 degrees, pulse 64, respiratory rate 24, blood pressure 147/48, intake 425 mL. Output has not been measured. General: Elderly female sitting up on the side of the bed in no acute distress. Awake. Alert, oriented x4. HEENT: Normocephalic atraumatic. Conjunctivae are pink. JOLIE. Neck: Supple. She continues with some JVD. Cardiovascular: Regular rate and rhythm. No murmur or gallop appreciated. Pulmonary: She has equal excursion. She is clear bilaterally with decreased breath sounds to the bases. She has no increased work of breathing. Abdomen: Soft, with positive bowel sounds. : Not inspected. She has minimal void. Extremities: She has 1+ pretibial edema. There is no clubbing or cyanosis. She is moving all extremities and is ambulatory with assistance. She has an AV fistula to the left upper extremity with a positive thrill. LABORATORY DATA: WBC of 8, hemoglobin 8.6, sodium 130, potassium 4.5, CO2 20, creatinine 7.2. ASSESSMENT AND PLAN: 1. Chronic kidney disease, stage 5, now requiring dialysis. We will dialyze her today on a 2K bath/UF 1-2 L as tolerated/two hour treatment. If she remains in the hospital tomorrow, we will plan to dialyze her again for a full treatment. We will set her up as an outpatient dialysis and give her the day and time for an outpatient dialysis schedule before she leaves the hospital. 2. Electrolytes, acid-base balance. These are acceptable. Anemia is stable. Continue to monitor. 3. Fluid volume overload. See #1 for plan. Seen, data reviewed, discussed with Lena Beasley on 06/24/15. I agree with the above assessment and plan of care. rg Dictated by ULISES Jones for Pramod Barrios MD [facility]
--- NOTE | 2016-06-24 16:33 | PROGRESS NOTE ---
DATE: 06/24/2016 SUBJECTIVE: Patient is feeling fine. Denies any complaints. OBJECTIVE: Vital Signs: Temperature 98.0 degrees, heart rate 85, respiratory rate 20, blood pressure 158/52, O2 saturation 94% 2 L nasal cannula. General examination: This is a chronically ill-looking, 85-year-old female, lying in bed in no acute distress. HEENT: Head is normocephalic, atraumatic. Neck: Supple. No JVD noted. No carotid bruits. Cardiovascular exam: S1, S2 heard. No murmurs, gallops, or rubs. Regular rate and rhythm. Respiratory exam: Clear bilaterally to auscultation. No work of breathing or using accessory muscles. Abdomen: Soft, nontender to palpation. Bowel sounds present. No organomegaly. Extremities: No clubbing, cyanosis, or edema. Peripheral pulses present in both legs. Neurological exam: Patient alert and oriented x3. Able to move 4 extremities. LABORATORY DATA: White cell count 8.0, hemoglobin 8.6, hematocrit 26.0, platelets 349. BMP unremarkable except creatinine 7.1 and BUN 8.2. ASSESSMENT AND PLAN: 1. Progressive chronic kidney disease stage V. 2. Hypertension. 3. Anemia of chronic disease. Patient has been transferred from [facility] because this patient has chronic kidney disease stage V that this was getting progressively worse to the point that this patient needs hemodialysis. I will discuss and evaluate this patient today. She will get her first session of hemodialysis. The plan is to have 3 days in a row of hemodialysis and then she can be discharged. Dr. Barrios is following this patient as we mentioned before. Regarding hypertension, blood pressure is stable. Regarding anemia, will transfuse patient needs if this patient has a hemoglobin of 7 or below.
[2016-06-24] MEDS: KLONOPIN PO PRN (20:39)
[2016-06-25] MEDS: PRILOSEC PO SCH (06:14)
[2016-06-25 06:40] LABS: HEMATOCRIT 28.6 % (37.0-47.0); HEMOGLOBIN 8.9 g/dL (12.0-16.0); MCH 29.6 PG (27-31); MCHC 31.1 g/dL (33-37); MPV 9.8 FL (7.4-10.4); RBC 3.01 XMIL (4.2-5.4)
[2016-06-25] MEDS ORDERED: TIGHT: 0.2 ML/HR MISC PRN (06:54)
[2016-06-25] MEDS ORDERED: HEPARIN IV PRN (06:54)
[2016-06-25] MEDS ORDERED: NS 2,000 ML MISC PRN (06:54)
[2016-06-25 07:10] LABS: ALBUMIN 3.4 g/dL (3.5-5.0); CALCIUM 9.3 mg/dL (8.8-10.2); POTASSIUM 4.2 mmol/L (3.5-5.1)
[2016-06-25] MEDS ORDERED: EPOGEN SUBQ ONE (07:47)
--- NOTE | 2016-06-25 08:33 | PROGRESS NOTE ---
DATE: 06/25/2016 SUBJECTIVE: Patient currently sitting in bed. She had no issues during dialysis yesterday. Edema and breathing are better today. OBJECTIVE: Vital Signs: Temperature 97.9, pulse 80, respiratory rate 23, blood pressure 173/65. Intake 473, output 2 L. General: On exam, elderly female, resting in bed. No acute distress. AAO x4. HEENT: Normocephalic, atraumatic. Conjunctivae are pink. Neck: Supple. Trace JVD. Cardiovascular: Regular rate and rhythm. No murmur or gallop appreciated. Pulmonary: Equal excursion. She is clear bilaterally without increased work of breathing. Abdomen: Soft with positive bowel sounds. : Not inspected. Minimal void. Extremities: She has trace pretibial edema. No clubbing or cyanosis. AV fistula noted left upper extremity. Integumentary: Skin is warm and dry. No rash or lesion. LAB DATA: WBC of 9.2, hemoglobin 8.9, sodium 135, potassium 4.2, CO2 of 26, BUN 50, creatinine 5.2. ASSESSMENT AND PLAN: 1. Chronic kidney disease stage 5, now requiring dialysis. The patient underwent a 2 hour treatment without difficulty. We will plan to dialyze her on a full treatment today with a 2 K bath/UF 1-2 L as tolerated again for full treatment. Plan to dialyze her again tomorrow and thereafter she can be discharged from the hospital. She has a hepatitis profile already run for outpatient requirements and outpatient dialysis is being set up and will be given to her before she leaves the hospital. 2. Electrolytes, acid-base balance. These are acceptable. 3. Anemia. Restart EPO. 4. Fluid volume, see #1 for plan. Seen, data reviewed, discussed with Lena Beasley on 06/25/16. I agree with the above assessment and plan of care. rg Dictated by ULISES Jones for Pramod Barrios MD [facility]
[2016-06-25] MEDS: HEPARIN SUBQ SCH ×2 (08:43→20:58)
[2016-06-25] MEDS ORDERED: HEPARIN ONE (09:21)
[2016-06-25] MEDS ORDERED: NS 2,000 ML ONE (09:21)
[2016-06-25 10:40] LABS: HEPATITIS PROFILE ACUTE SEE COMMENTS (())
[2016-06-25] MEDS: LACTULOSE PO SCH ×2 (10:57→20:59)
[2016-06-25] MEDS: APRESOLINE PO SCH ×2 (10:57→13:42)
[2016-06-25] MEDS: HYDROXYZINE PO SCH ×3 (10:57→17:09)
[2016-06-25] MEDS: ROCALTROL PO SCH (13:41)
[2016-06-25] MEDS: MIRALAX PO SCH (13:41)
[2016-06-25] MEDS: VITAMIN D PO SCH (13:42)
[2016-06-25] MEDS: ICAR-C PLUS PO SCH (13:42)
[2016-06-25] MEDS: CULTURELLE PO SCH (13:42)
[2016-06-25] MEDS: CARDIZEM CD PO SCH (13:42)
[2016-06-25] MEDS: COZAAR PO SCH (13:42)
[2016-06-25] MEDS: IMDUR PO SCH (13:43)
--- NOTE | 2016-06-25 14:49 | PROGRESS NOTE ---
DATE: 06/25/2016 SUBJECTIVE: The patient is feeling fine. No complaints. OBJECTIVE: Vital Signs: Temperature 98.3 degrees, heart rate 91, respiratory rate 20, blood pressure 162/57, O2 saturation 98% on room air. General Examination: This is a chronically ill- looking, 85-year-old female lying in bed, in no acute distress. HEENT: Head is normocephalic, atraumatic. Neck: Supple. No JVD. Cardiovascular: S1, S2 heard. No murmurs, gallops, or rubs. Regular rate and rhythm. Respiratory: Clear bilaterally to auscultation. No work of breathing or using accessory muscles. Abdomen: Soft. Nontender to palpation. Bowel sounds present. No organomegaly. Extremities: No clubbing, cyanosis, or edema. Peripheral pulses present in both legs. Neurological: Patient is alert and oriented x3. Able to move her extremities. Cranial nerves 2 through 12 grossly normal. LABORATORY DATA: White cell count 9.22, hemoglobin 8.9, hematocrit 28.6, platelets 370,000. Sodium 135, potassium 4.2, chloride 96, bicarbonate 26, BUN 15, creatinine 5.2. ASSESSMENT: 1. Progressive chronic kidney disease stage 5, needing hemodialysis. 2. Hypertension. 3. Anemia of chronic disease. PLAN: This patient basically is receiving hemodialysis as per Dr. Barrios. Today is day #2. They are planning to dialyze her for 3 days and if she is doing fine they are going to schedule hemodialysis 3 times per week. After that, she will be good to go. Physical therapy has been involved in the care of this patient. We will see what they recommend regarding placement.
[2016-06-25] MEDS: [UNRECOGNIZED DRUG - OTHER] BOTH EYES SCH (16:06)
[2016-06-25] MEDS ORDERED: APRESOLINE PO SCH (17:00)
[2016-06-26 05:36] VITALS: BP 152/46
[2016-06-26] MEDS ORDERED: TIGHT: 0.2 ML/HR MISC PRN (05:55)
[2016-06-26] MEDS ORDERED: HEPARIN IV PRN (05:55)
[2016-06-26] MEDS ORDERED: NS 2,000 ML MISC PRN (05:55)
[2016-06-26] MEDS: PRILOSEC PO SCH (06:42)
[2016-06-26 06:50] LABS: HEMATOCRIT 31.6 % (37.0-47.0); HEMOGLOBIN 9.7 g/dL (12.0-16.0); MCH 29.5 PG (27-31); MCHC 30.7 g/dL (33-37); MPV 9.9 FL (7.4-10.4); RBC 3.29 XMIL (4.2-5.4)
--- NOTE | 2016-06-26 07:03 | PROGRESS NOTE ---
DATE: 06/26/2016 SUBJECTIVE: She feels well. She is sitting up on the side of the bed. No shortness of breath, cramping, or nausea. OBJECTIVE: Vital Signs: Blood pressure 152/46, heart rate 83, respirations 12, afebrile. Intake 400 mL. Output 2 L. General: No acute distress. Skin: Warm and dry. Conjunctivae are pink. Neck: Neck veins are not visible. Trachea is midline. Heart: Regular with a murmur. Lungs: Have equal breath sounds. No crackles. Abdomen: Soft, nontender. Bowel sounds are present. Extremities: Have no edema, clubbing, or cyanosis. LABORATORY DATA: Pending for today. 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 Symptomatically and functionally improved. Okay for discharge after dialysis today. We have treated her with erythropoietin in her hemoglobin is stable or improving. A 3 potassium bath today with a goal of 1-2 L ultrafiltration.
[2016-06-26 07:08] LABS: ALBUMIN 3.6 g/dL (3.5-5.0); CALCIUM 9.9 mg/dL (8.8-10.2)
[2016-06-26] MEDS: HEPARIN SUBQ SCH (08:12)
[2016-06-26] MEDS: HYDROXYZINE PO SCH (08:12)
[2016-06-26] MEDS: [UNRECOGNIZED DRUG - OTHER] BOTH EYES SCH (08:12)
[2016-06-26] MEDS ORDERED: NS 2,000 ML ONE (10:10)
[2016-06-26] MEDS ORDERED: HEPARIN ONE (10:10)
--- NOTE | 2016-06-26 22:10 | DISCHARGE SUMMARY ---
ADMISSION DATE: 06/17/2016 DISCHARGE DATE: 06/26/2016 CONSULTATIONS: 1. Paris Leger M.D., Cardiology. 2. Pramod Barrios M.D., Nephrology. PERTINENT PROCEDURES: 1. Chest x-ray showed cardiomegaly with interstitial edema, more focal edema or pneumonia in the right lung base. 2. Follow-up chest x-ray showed a worsening right pleural effusion. DISCHARGE DIAGNOSES: 1. Chronic kidney disease stage 5 regarding hemodialysis. 2. Hypertension. 3. Anemia of chronic disease. HOSPITAL COURSE: Ms. Ariza is an 85-year-old female with a history of shortness of breath, CHF and chronic renal failure stage 3. Her last admission was in March she come to the ED with progressing shortness of breath for several days. She denies any weight changes or dietary changes. However, it was thought maybe with the holidays it was suspicious for some dietary transgressions. She had progressive shortness of breath over the last 2-3 days. She had an episode of PND. She was exhibiting orthopnea. Clinically she was volume overloaded in the emergency room felt to be CHF exacerbation and was admitted as such. Initially it was not disclosed. Elevated creatinine of 4.5 with a GFR of 9. The main focus was on a BMP of 14,957 which was elevated. She was initiated on IV Lasix drip. Cardiology was consulted for her malignant hypertension. She was started on Cardizem, hydralazine and losartan. Her hydralazine was increased to t.i.d. Nephrology was consulted. The patient was initially admitted to [facility]. Cardiology did agree with mild diuresis. They did some more adjustments to her blood pressure medication. Dr. Barrios did discuss with the patient the possibility that if they are unable to manage her fluid volumes medically that dialysis may be warranted, however, at the present time there was no indication to do so. The patient did not respond well to diuresis during the hospitalization. This was her 3rd hospitalization in the last 2-[address] Barrios did optimize oral diuretics because she not could not keep in an IV. Her electrolytes and acid base remain acceptable. Her renal function continued to worsen. The patient was showing JVD on neck examination. She was given an extra dose of Lasix. She was transferred to [facility] where she could start dialysis. Patient did have 3 days of hemodialysis while at [facility]. Symptomatically and functionally she improved. Dr. Barrios states she is okay for discharge after her dialysis today. She was treated with erythropoietin. Hemoglobin is stable and improving. VITAL SIGNS AT TIME OF DISCHARGE: Temperature is 98 degrees, heart rate 83, respirations 20. Blood pressure is 152/46, O2 is 97% on room air. DISCHARGE MEDICATIONS: Please see more as per Dr. Long. FOLLOWUP: 1. The patient is being discharged home with home health with [facility]. 2. She will follow up with Dr. Barrios as discussed for hemodialysis. 3. Patient can follow up with Dr. César Castro in 7-10 days. 4. Patient can return to the ED for any worsening of symptoms. TOTAL TIME SPENT ON DISCHARGE: 30 minutes. Dictated by ULISES Moe for Gerber Juarez MD
== END 2016-06-26 15:30 | disposition home health service (06) | DRG 291 ==
LOC: P.ED 15:17 → P.MEDSURG 19:40 → 3N 06-23 14:50 → DIRADM 06-26 13:27
PROVIDERS: ATTEND Internal Medicine
PROC: 5A1D60Z (ICD-10-PCS; principal; 2016-06-24)
DX: I13.2 Hypertensive heart and chronic kidney disease with heart failure and with stage 5 chronic kidney disease, or end stage renal disease (principal); N18.6 End stage renal disease; N17.9 Acute kidney failure, unspecified; E11.22 Type 2 diabetes mellitus with diabetic chronic kidney disease; Z99.81 Dependence on supplemental oxygen; I50.32 Chronic diastolic (congestive) heart failure; J44.9 Chronic obstructive pulmonary disease, unspecified; Z79.899 Other long term (current) drug therapy; J45.909 Unspecified asthma, uncomplicated; Z85.528 Personal history of other malignant neoplasm of kidney; Z90.5 Acquired absence of kidney; Z82.49 Family history of ischemic heart disease and other diseases of the circulatory system; K59.00 Constipation, unspecified; E21.3 Hyperparathyroidism, unspecified; K21.9 Gastro-esophageal reflux disease without esophagitis; D50.9 Iron deficiency anemia, unspecified
CPT/HCPCS: 36415; 71020; 80053; 80069; 80074; 81001; 82607; 82728; 82746; 83036; 83540; 83550; 83880; 84484; 85025; 85027; 87040; 87088; 93005; 93010; 94761; 96374; J0885; J1644; J1940; J7030; J7040; 97001-GP